=== PATIENT | female | born 1980 | race Caucasian/White ===

== ENCOUNTER 2025-07-07 15:14 | Inpatient (IN) | payer OTHER ==
[2025-07-07] VITALS (21 sets, daily range): BP systolic 69–137; BP diastolic 40–89
[~2025-07-07] VITALS: Ht 168 cm; Wt 56.2 kg
[2025-07-07 15:35] LABS: BILIRUBIN Negative (Negative); BLOOD Negative (Negative); CLARITY Clear (Clear); COLOR Yellow (Yellow); KETONE Negative (Negative); LEUKO ESTERASE Negative (Negative); NITRITE Negative (Negative); PH 7.5 (4.5-8.0); SPECIFIC GRAVITY 1.010 (1.001-1.030); UROBILINOGEN 0.2 E.U./dl (0.0-1.0)
[2025-07-07 15:42] LABS: EPITHELIAL CELLS 0-2; WBC 0-2 wbc/hpf (0-5)
[2025-07-07 15:43] LABS: URINE AMPHETAMINES Negative (1000ng/ml); URINE BARBITURATES Negative (200ng/ml); URINE BENZODIAZEPINES Negative (200ng/ml); URINE CANNABINOIDS (THC) Positive (50ng/ml); URINE COCAINE Negative (300ng/ml); URINE METHADONE Negative (300ng/ml); URINE OPIATES Negative (300ng/ml); URINE PHENCYCLIDINE Negative (25ng/ml)
[2025-07-07] MEDS ORDERED: Naloxone Hydrochloride 2 MG/2 ML SYR ONE (15:47)
[2025-07-07 16:03] LABS: BASO # 0.0 10*3/uL (0.0-0.1); BASO % 0.4 % (0.0-1.0); EOS # 0.1 10*3/uL (0.0-0.4); EOS % 1.1 % (1.0-4.0); MEAN CELL VOLUME 92.5 fl (81.0-99.0); MEAN CORPUSCULAR HGB 31.1 pg (27.0-31.0); MEAN PLATELET VOLUME 9.3 fl (9.6-12.3); MONO # 0.9 10*3/uL (0.1-1.0); MONO % 8.8 % (3.0-9.0); NEUT # 4.6 10*3/uL (2.3-7.9); NEUT % 46.4 % (47.0-73.0); NUCLEATED RED BLOOD CELL 0.0 % (0.0-0.0); NUCLEATED RED BLOOD CELL 0.0 10*3/uL (0.0-0.0); PLATELET COUNT AUTOMATED 298 10*3/uL (130-400); RED CELL DISTRI WIDTH 12.6 % (0-14.5)
[2025-07-07 16:19] LABS: ACT PARTIAL THROMBO TIME 22.1 SECONDS (20.0-32.1)
[2025-07-07] MEDS ORDERED: PROPOFOL 50 ML IV SCH (16:25)
[2025-07-07 16:26] LABS: BUN 12 mg/dl (9-23)
[2025-07-07 16:28] LABS: ETHYL ALCOHOL < 3.0 mg/dl (<3)
[2025-07-07] MEDS ORDERED: POTASSIUM CHLORIDE IN WATER 100 ML IV SCH (17:00)
[2025-07-07] MEDS ORDERED: ADIPEX-P37.5 M2 PO (17:26)
[2025-07-07] MEDS ORDERED: SODIUM CHLORIDE 0.9% 1,000 ML IV ONE ×3 (18:25→22:25)
[2025-07-07] MEDS ORDERED: ACETAMINOPHEN 325 MG TAB PO PRN (18:35)
[2025-07-07] MEDS ORDERED: BISACODYL 10 MG SUPP R PRN (18:35)
[2025-07-07] MEDS ORDERED: Ondansetron Hydrochloride 4 MG/2 ML VIAL IV PRN (18:35)
[2025-07-07] MEDS ORDERED: BISACODYL 5 MG TAB PO PRN (18:35)
[2025-07-07] MEDS ORDERED: ACETAMINOPHEN 650 MG SUPP R PRN (18:35)
[2025-07-07] MEDS ORDERED: Acetaminophen/Hydrocodone 5 MG/325 MG TABLET PO PRN (18:35)
[2025-07-07] MEDS ORDERED: Albuterol Sulf/Ipratropium 3 ML VIAL NEB SCH (18:50)
[2025-07-07] MEDS ORDERED: SODIUM CHLORIDE 0.9% 100 ML IV ONE (20:13)
[2025-07-07] MEDS ORDERED: IOHEXOL 350 MG/ML 100 ML VIAL IV ONE ×2 (20:13→20:15)
[2025-07-07] MEDS ORDERED: SODIUM CHLORIDE 0.9% 100 ML BAG IV ONE (20:15)
[2025-07-07] MEDS ORDERED: HEPARIN SODIUM 250 ML IV SCH (20:20)
[2025-07-07] MEDS ORDERED: ASPIRIN, CHEWABLE 81 MG TAB OGT ONE (20:30)
[2025-07-07 20:50] LABS: ABG O2 SATURATION 70.7 % (94.0-98.0); ARTERIAL BLOOD GAS PH 7.352 (7.350-7.450)
[2025-07-07 20:54] LABS: ABG BASE EXCESS -3.0 mmol/L (-2.0-3.0); ARTERIAL BLOOD GAS PO2 37.2 mmHg (83.0-108.0)
[2025-07-07] MEDS ORDERED: ASPIRIN, CHEWABLE 81 MG TAB ONE (22:01)
[2025-07-08] VITALS (20 sets, daily range): BP systolic 83–102; BP diastolic 48–70
[2025-07-08] MEDS ORDERED: SODIUM CHLORIDE 0.9% 1,000 ML IV ONE (05:30)
[2025-07-08 05:41] LABS: BUN 8 mg/dl (9-23); FREE T4 1.11 ng/dl (0.89-1.76); LDL CHOLESTEROL 84 mg/dL (9-159); SGPT/ALT 34 U/L (5-49)
[2025-07-08 06:21] LABS: BASO # 0.0 10*3/uL (0.0-0.1); BASO % 0.2 % (0.0-1.0); EOS # 0.1 10*3/uL (0.0-0.4); EOS % 0.5 % (1.0-4.0); MEAN CELL VOLUME 95.3 fl (81.0-99.0); MEAN CORPUSCULAR HGB 31.8 pg (27.0-31.0); MEAN PLATELET VOLUME 9.6 fl (9.6-12.3); MONO # 0.9 10*3/uL (0.1-1.0); MONO % 9.6 % (3.0-9.0); NEUT # 6.7 10*3/uL (2.3-7.9); NEUT % 68.9 % (47.0-73.0); NUCLEATED RED BLOOD CELL 0.0 % (0.0-0.0); NUCLEATED RED BLOOD CELL 0.0 10*3/uL (0.0-0.0); PLATELET COUNT AUTOMATED 220 10*3/uL (130-400); RED CELL DISTRI WIDTH 12.7 % (0-14.5)
[2025-07-08 07:16] LABS: ARTERIAL BLOOD GAS PH 7.416 (7.350-7.450)
[2025-07-08 07:17] LABS: ABG BASE EXCESS -2.0 mmol/L (-2.0-3.0); ARTERIAL BLOOD GAS PO2 151.2 mmHg (83.0-108.0)
[2025-07-08 07:18] LABS: ABG O2 SATURATION 98.5 % (94.0-98.0)
[2025-07-08 07:38] LABS: VITAMIN D, 25-HYDROXY 52.7 ng/mL (30-100)
[2025-07-08] MEDS ORDERED: ATORVASTATIN CALCIUM 40 MG TABLET PO SCH (10:00)
[2025-07-08] MEDS ORDERED: ASPIRIN, CHEWABLE 81 MG TAB PO SCH (10:00)
[2025-07-08] MEDS ORDERED: Albuterol Sulf/Ipratropium 3 ML VIAL NEB PRN (11:00)
[2025-07-09] VITALS: BP 90/50
[2025-07-09 04:00] VITALS: BP 111/74
[2025-07-09 05:25] LABS: BUN < 5 mg/dl (9-23)
[2025-07-09 06:14] LABS: BASO # 0.0 10*3/uL (0.0-0.1); BASO % 0.3 % (0.0-1.0); EOS # 0.1 10*3/uL (0.0-0.4); EOS % 0.9 % (1.0-4.0); MEAN CELL VOLUME 94.1 fl (81.0-99.0); MEAN CORPUSCULAR HGB 31.4 pg (27.0-31.0); MEAN PLATELET VOLUME 9.7 fl (9.6-12.3); MONO # 0.9 10*3/uL (0.1-1.0); MONO % 10.4 % (3.0-9.0); NEUT # 4.8 10*3/uL (2.3-7.9); NEUT % 55.5 % (47.0-73.0); NUCLEATED RED BLOOD CELL 0.0 % (0.0-0.0); NUCLEATED RED BLOOD CELL 0.0 10*3/uL (0.0-0.0); PLATELET COUNT AUTOMATED 254 10*3/uL (130-400); RED CELL DISTRI WIDTH 13.1 % (0-14.5)
[2025-07-09] MEDS ORDERED: POTASSIUM CHLORIDE 20 MEQ TAB PO ONE (07:00)
[2025-07-09] MEDS ORDERED: IBUPROFEN 600 MG TAB PO ONE (08:20)
[2025-07-09 12:00] VITALS: BP 106/76
[2025-07-09 14:10] LABS: BILIRUBIN Negative (Negative); BLOOD Negative (Negative); CLARITY Clear (Clear); COLOR Yellow (Yellow); KETONE Negative (Negative); LEUKO ESTERASE Negative (Negative); NITRITE Negative (Negative); PH 7.5 (4.5-8.0); SPECIFIC GRAVITY 1.010 (1.001-1.030); UROBILINOGEN 1.0 E.U./dl (0.0-1.0)
[2025-07-09] MEDS ORDERED: ASPIRIN CHILDRE81 MG PO (14:12)
[2025-07-09] MEDS ORDERED: ATORVASTATIN CA40 M1 PO (14:12)
[2025-07-11] MEDS ORDERED: ROCURONIUM BROMIDE 50 MG/5 ML SYRINGE IV ONE (20:57)
[2025-07-11] MEDS ORDERED: ETOMIDATE 20 MG/10 ML VIAL IV ONE (20:57)
== END 2025-07-09 15:00 | disposition home or self-care (01) | DRG 917 ==
LOC: ED 15:14 → EDHOLD 17:53 → ICCU 17:53
PROVIDERS: Internal Medicine; Student in an Organized Health Care Education/Training Program; ADMIT Internal Medicine; ATTEND Internal Medicine
PROC: 5A1945Z Respiratory Ventilation, 24-96 Consecutive Hours (ICD-10-PCS; principal; 2025-07-07)
PROC: 0BH18EZ Insertion of Endotracheal Airway into Trachea, Via Natural or Artificial Opening Endoscopic (ICD-10-PCS; 2025-07-07)
DX: T40.711A Poisoning by cannabis, accidental (unintentional), initial encounter (principal); G93.41 Metabolic encephalopathy; J96.01 Acute respiratory failure with hypoxia; I21.4 Non-ST elevation (NSTEMI) myocardial infarction; U07.1 COVID-19; R65.10 Systemic inflammatory response syndrome (SIRS) of non-infectious origin without acute organ dysfunction; Z68.1 Body mass index [BMI] 19.9 or less, adult; I95.2 Hypotension due to drugs; E66.9 Obesity, unspecified; R73.9 Hyperglycemia, unspecified; E87.6 Hypokalemia; Z81.1 Family history of alcohol abuse and dependence